=== PATIENT | female | born 1995 | race African-American/Black ===

== ENCOUNTER 2016-08-01 00:58 | Emergency (ER) | payer SELFPAY ==
[2016-08-01 01:12] VITALS: TEMP 97.8; BMI 31.8
--- NOTE | 2016-08-01 01:24 | EDPRACDOC ---
- General Information Chief Complaint: Arrhythmia Stated Complaint: FAST HEART RATE Time Seen by Provider: 08/01/16 01:12 Information Source: Patient Mode of Arrival: Car Home Medications: Home Medications Sulfamethoxazole/Trimethoprim [Bactrim Ds Tablet] 1 tab PO BID #14 tab 08/01/16 - History of Present Illness Onset: Monday HPI: PT STATES THAT LAST MONDAY NIGHT SHE NOTED THREE SHARP PAINS IN HER CHEST AND FELT LIKE HER HEART WAS BEATING FAST. SHE STATES SHE HAS NOTED HER PULSE TO BE HAS HIGH 120 BPM. DENIES TAKING ANY OTHER MEDICATIONS THAN HER CONTROL. DENIES FEVER, CHILLS, NAUSEA OR VOMITING. DENIES COUGH OR SHOB. Symptoms Started: Reports: Suddenly, At Rest Relevant History: Reports: None Pulse is: Slow Defibrillator Firing: No Worsens with: Reports: Nothing Associated signs & symptoms: Reports: None Chest Pain Location: Reports: Substernal Pain Quality: Reports: Sharp Pain Radiation: Reports: None ED Past Medical History - History Reviewed Yes Nurses notes reviewed and agree except as marked - Patient Medical History Respiratory History: Reports: Asthma Surgical History: Reports: Cholecystectomy EDM Review of Systems - Review of Systems ROS Negative Except as Marked: Yes All systems reviewed and were negative except as marked - Physical Exam Constitutional: Alert, Well nourished, Well appearing Oriented to: Time, Person, Place Last recorded Vital Signs: Last Vital Signs Temp 97.8 F 08/01/16 01:03 Pulse 71 08/01/16 01:03 Resp 18 08/01/16 01:03 BP 124/60 08/01/16 01:03 Pulse Ox 98 08/01/16 01:03 Oxygen Pulse Oxygen Saturation 98 O2 Device Room Air Oxygen Flow Rate Fraction of Inspired Oxygen ( FIO2) - HEENT Head: Normal ( normocephalic) Eye Exam: Normal (PERRL, EOMI, Sclera white) Oropharynx: Normal (Pharynx:Moist without exudate,Gums-no swelling) Nose: No Symptoms Reported (septum midline) Neck: Normal (FROM, trachea at midline) - Respiratory/Cardiovascular Respiratory: Normal - CTA (BBS clear to auscultation without adventitious sounds ) Cardiovascular: Normal (RRR without murmur, gallop or rub) - GI Auscultation: Normal (NABS) Palpation: Normal (Soft,No rebound or guarding, non distended) Tenderness: Non tender Alexis's Sign: Negative Rectal Exam: Deferred - Musculoskeletal Back: Normal (Non-Tender) Extremities: Normal (Normal tone, Pulses 2+ No cyanosis or edema, FROM) - Integumentary Skin: Normal, Warm, Dry Lymphatics: Normal (no adenopathy) - Neurologic Memory Impaired: Normal Motor Function: Normal (Normal tone, Pulses 2+ No cyanosis or edema, FROM) Cranial Nerve: Normal (CN II-X11 intact sensation, strength 5/5) Cerebellar: Normal Mood Description: Normal Perception: Normal - Differential Diagnosis Other - Results 08/01/16 01:50 08/01/16 01:50 - EKG EKG #1 Initial EKG Time: 01:45 -: Yes EKG interpreted by me Rate: bpm: 65 [place]: Normal Rhythm: NSR (WITH SINUS ARRHYTHMIA) Block: None Hypertrophy: None ST: Normal Decision Time to Discharge: 02:36 - Departure Disposition: Home Condition: Stable Final Diagnosis: Palpitations UTI (urinary tract infection) Qualifiers: Urinary tract infection type: acute cystitis Hematuria presence: without hematuria Qualified Code(s): N30.00 - Acute cystitis without hematuria Instructions: Urinary Tract Infection in Women (ED), Dysuria, Palpitations (ED) Education/Counseling Given To: Patient Education/Counseling Given Regarding: Diagnosis, Treatment, Prognosis, Follow Up Referrals: Mateusz Muhammad MD [Staff Physician] - One Week Prescriptions: New Sulfamethoxazole/Trimethoprim [Bactrim Ds Tablet] 1 tab PO BID #14 tab Additional Instructions: INCREASE FLUID INTAKE. FOLLOW UP WITH PRIMARY CARE PROVIDER NEXT WEEK. TAKE ALL ANTIBIOTICS PRESCRIBED. RETURN TO THE ED FOR WORSENING SYMPTOMS OR CONCERNS.
[2016-08-01 01:47] LABS: ALL NEG? NO
[2016-08-01 01:52] LABS: LEUKOCYTES/URINE 2+ (NEGATIVE); NITRITE/URINE NEG (NEGATIVE); URINE OCCULT BLOOD NEG (NEG/TRACE)
[2016-08-01 01:53] LABS: MDMA* NEG (NEGATIVE); METHAMPHETAMINES NEG (NEGATIVE); OXYCODONE NEG (NEGATIVE)
[2016-08-01 02:02] LABS: AUTOMATED BASOPHIL 0.8 % (0-2); AUTOMATED EOSINOPHIL 1.7 % (0-5); AUTOMATED LYMPH 32.2 % (17-44); AUTOMATED MONOCYTE 7.8 % (3-10); AUTOMATED NEUTROPHIL 57.5 % (45-76); MPV 9.8 fL (7.4-10.4)
--- NOTE | 2016-08-01 02:08 | DIRPT ---
CLINICAL DATA: Acute onset of palpitations. Initial encounter. EXAM: CHEST 2 VIEW COMPARISON: Chest radiograph performed 05/23/2016 FINDINGS: The lungs are well-aerated and clear. There is no evidence of focal opacification, pleural effusion or pneumothorax. The heart is normal in size; the mediastinal contour is within normal limits. No acute osseous abnormalities are seen. Clips are noted within the right upper quadrant, reflecting prior cholecystectomy. IMPRESSION: No acute cardiopulmonary process seen. Electronically Signed By: Ian Ng M.D. On: 08/01/2016 02:05
[2016-08-01 02:28] LABS: BLOOD UREA NITROGEN 8 MG/DL (7-17); CALC CORRECTED 9.4 MG/DL (8.4-10.2); CALCULATED OSMOLALITY 263 MOs/Kg (270-290); CHLORIDE 104 mEq/L (98-107); GLUCOSE 88 mg/dL (70-99); SODIUM LEVEL 138 mEq/L (137-146)
[2016-08-01 02:31] LABS: FREE T3 4.5 pg/mL (2.77-5.27); FREE T4 1.15 ng/dL (0.78-2.19)
[2016-08-01] MEDS ORDERED: TRIMETHOPRIM-SULFAMETHOXAZOLE TAB PO ONE (02:36)
[2016-08-01 02:44] LABS: hTSH 3.1 uIU/mL (0.5-4.67)
[2016-08-01 02:48] VITALS: BP 112/74; PULSE 68
== END 2016-08-01 02:45 | disposition home or self-care (01) ==
LOC: ED 00:58
DX: R00.2 Palpitations (principal); N30.00 Acute cystitis without hematuria
CPT/HCPCS: 36415; 71020; 80053; 80307; 81001; 81025; 84439; 84443; 84481; 85025; 87086; 93005; 99284; J3490

== ENCOUNTER 2016-08-02 22:28 | Emergency (ER) | payer SELFPAY ==
[2016-08-02 22:53] VITALS: TEMP 98.6; BMI 31.6
--- NOTE | 2016-08-02 23:46 | DIRPT ---
CLINICAL DATA: Trauma. Pain. EXAM: RIGHT ANKLE - COMPLETE 3+ VIEW COMPARISON: None. FINDINGS: There is no evidence of fracture, dislocation, or joint effusion. There is no evidence of arthropathy or other focal bone abnormality. Soft tissues are unremarkable. IMPRESSION: Negative. Electronically Signed By: Nathan Coates M.D. On: 08/02/2016 23:43
[2016-08-03 00:12] VITALS: BP 116/62
[2016-08-03] MEDS ORDERED: HYDROCODONE 5 MG/ACETAMIN 325 MG TAB PO ONE (00:12)
--- NOTE | 2016-08-03 00:12 | EDPRACDOC ---
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 Denies: Hysterectomy - Social Medical History Smoking Status: Never smoker EDM Review of Systems - Review of Systems ROS Negative Except as Marked: Yes All systems reviewed and were negative except as marked - Physical Exam Constitutional: No apparent distress Oriented to: Time, Person, Place Last recorded Vital Signs: Last Vital Signs Temp 98.6 F 08/02/16 22:52 Pulse 88 08/02/16 22:52 Resp 20 08/02/16 22:52 BP 120/60 08/02/16 22:52 Pulse Ox 99 08/02/16 22:52 Oxygen Pulse Oxygen Saturation 99 O2 Device Room Air Oxygen Flow Rate Fraction of Inspired Oxygen ( FIO2) ED Ankle Problem Phys Exam - Musculoskeletal Ankle: Swelling, Mild Tenderness Achilles Tendon: Normal Knee: Normal Lower Leg: Normal Foot: Normal Distal Function/Circulation: Normal - Integumentary Skin: Normal Decision Time to Discharge: 00:35 - Departure Yes I personally saw and evaluated the patient. Disposition: Home Condition: Good Final Diagnosis: Ankle Sprain Instructions: RICE Therapy (ED), Ankle Sprain (ED) Education/Counseling Given To: Patient, Family Member Education/Counseling Given Regarding: Diagnosis, Treatment, Prognosis Referrals: None,No Provider [Primary Care Provider] - One Week Heraclio Moscoso MD [Staff Physician] - One Week Prescriptions: New Ketorolac Tromethamine 10 mg PO Q6H PRN #20 tab PRN Reason: Pain No Action Sulfamethoxazole/Trimethoprim [Bactrim Ds Tablet] 1 tab PO BID #14 tab
[2016-08-03 00:37] VITALS: PULSE 76
== END 2016-08-03 00:36 | disposition home or self-care (01) ==
LOC: ED 22:28
DX: S93.409A Sprain of unspecified ligament of unspecified ankle, initial encounter (principal); X58.XXXA Exposure to other specified factors, initial encounter; Y93.9 Activity, unspecified
CPT/HCPCS: 73610; 99283; J3490